=== PATIENT | male | born 1995 | race Hispanic/Latino ===

== ENCOUNTER 2023-07-12 17:54 | Emergency (ER) | payer BC ==
[2023-07-12] MEDS ORDERED: Ibuprofen 200 MG TAB ONE (18:24)
[2023-07-12 19:17] LABS: Influenza A by NAA Not Detected (NotDetected); Influenza B by NAA Not Detected (NotDetected); SARS-CoV-2 NAA Rapid Test Not Detected (NotDetected)
== END 2023-07-12 19:40 | disposition home or self-care (01) ==
LOC: NAV ERS 17:54
DX: B34.9 Viral infection, unspecified (principal)
CPT/HCPCS: 87081; 87430; 99283